=== PATIENT | female | born 1960 | race African-American/Black ===

== ENCOUNTER 2020-10-21 09:42 | Emergency (ER) | payer OTHER, SELFPAY ==
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
[2020-10-21 10:04] VITALS: BP 117/78; PULSE 101; RESP 20; TEMP 36.9; O2SAT 96; BMI 30.9
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
[2020-10-21] MEDS: HYDROmorphone HCl 0.5 MG/0.5 ML SYRINGE IM (11:31)
[2020-10-21 12:50] LABS: Glucose, Whole Blood 147 mg/dL (60-115)
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
== END 2020-10-21 14:47 | disposition home or self-care (01) ==
PROVIDERS: Emergency Provider Internal Medicine; PCP Internal Medicine
DX: S90.32XA Contusion of left foot, initial encounter (principal); S00.03XA Contusion of scalp, initial encounter; Y04.2XXA Assault by strike against or bumped into by another person, initial encounter; R07.89 Other chest pain; M25.572 Pain in left ankle and joints of left foot; E11.9 Type 2 diabetes mellitus without complications; Y93.89 Activity, other specified; Y92.039 Unspecified place in apartment as the place of occurrence of the external cause; Y99.9 Unspecified external cause status; Z72.89 Other problems related to lifestyle; Z69.11 Encounter for mental health services for victim of spousal or partner abuse; Z85.3 Personal history of malignant neoplasm of breast; Z85.038 Personal history of other malignant neoplasm of large intestine; Z85.118 Personal history of other malignant neoplasm of bronchus and lung; Z90.10 Acquired absence of unspecified breast and nipple; Z90.2 Acquired absence of lung [part of]
CPT/HCPCS: 70450; 71045; 72125; 73590; 73610; 73620; 82947; 96372; 99283; 99284; J1170